=== PATIENT | female | born 1995 | race Two or more races ===

== ENCOUNTER 2017-07-31 14:40 | Emergency (ER) | payer MEDICAID ==
[2017-07-31] MEDS ORDERED: predniSONE 20 MG TABLET PO STA (15:02)
[2017-07-31] MEDS ORDERED: HYDROcod/ACETAM 5/325 MG TABLET PO STA (15:02)
--- NOTE | 2017-07-31 15:04 | ED Physician Documentation ---
PD HPI HEENT - Stated complaint Stated Complaint: FEVER/THROAT PX/RASH - Chief complaint Chief Complaint: Heent - History obtained from History obtained from: Patient - History of Present Illness Timing - onset: Other (2 days of sore throat with pain radiating to both ears associated with fever on the first day which is now better. She has a mild cough but nonproductive. No possibility of . She did recently travel to [facility] and returned yesterday.) Review of Systems Constitutional: reports: Fever (gone). denies: Myalgias Ears: reports: Ear pain Nose: reports: Congestion Throat: reports: Sore throat Respiratory: reports: Cough. denies: Dyspnea GI: reports: Nausea. denies: Abdominal Pain, Vomiting PD PAST MEDICAL HISTORY - Past Medical History Past Medical History: Yes EMBROIDERY CUTTER: Endometriosis - Past Surgical History Past Surgical History: Yes /EMBROIDERY CUTTER: Endometrial ablation - Present Medications Home Medications: Ambulatory Orders Medication Instructions Recorded Confirmed HYDROcod/ACETAM 5/325 [Everson 5/325] 1 - 2 ea PO Q6H PRN #15 tablet 07/31/17 predniSONE [Deltasone] 60 mg PO DAILY 5 Days tablet 07/31/17 - Allergies Allergies/Adverse Reactions: Allergies Allergy/AdvReac Type Severity Reaction Status Date / Time No Known Drug Allergies Allergy Verified 07/31/17 14:48 - Social History Does the pt smoke?: No Smoking Status: Never smoker PD ED PE NORMAL - Vitals Vital signs reviewed: Yes - General General: Alert and oriented X 3, No acute distress - HEENT HEENT: PERRL, EOMI, Ears normal, Moist mucous membranes, Pharynx benign - Neck Neck: Supple, no meningeal sign, Other (Mild anterior cervical adenopathy) - Cardiac Cardiac: RRR, No murmur - Respiratory Respiratory: No respiratory distress, Clear bilaterally - Abdomen Abdomen: Non tender - Derm Derm: No rash - Neuro Neuro: Alert and oriented X 3, Normal speech - Psych Psych: Normal mood, Normal affect Results - Vitals Vitals: Vital Signs - 24 hr 07/31/17 14:46 Temperature 36.6 C Heart Rate 94 Respiratory 17 Rate Blood Pressure 129/87 H O2 Saturation 98 Oxygen O2 Source Room air - Labs Labs: Laboratory Tests 07/31/17 14:45 Group A Strep Rapid Negative PD MEDICAL DECISION MAKING - ED course ED course: She has what sounds like viral pharyngitis,Travel noted, however this seems like a classic URI with unremarkable vital signs and examination. Departure - Departure Disposition: 01 Home, Self Care Clinical Impression: Viral pharyngitis Condition: Good Record reviewed to determine appropriate education?: Yes Instructions: ED Pharyngitis Viral Prescriptions: HYDROcod/ACETAM 5/325 [Everson 5/325] 1 - 2 ea PO Q6H PRN #15 tablet PRN Reason: Pain predniSONE [Deltasone] 60 mg PO DAILY 5 Days tablet Comments: Call your doctor to arrange a follow-up appointment, make the next available appointment. In the interim, return anytime if worse or if new symptoms develop. Your blood pressure was elevated today on check into the emergency department. This does not mean that you have hypertension, it is a common phenomenon to come to the emergency department and have elevated blood pressure. I recommend that you see your primary care physician within the week to have it rechecked when you are feeling better.
[2017-07-31] MEDS ORDERED: ONDANSETRON ODT 4 MG TABLET TL STA (15:31)
[2017-07-31 15:37] VITALS: BP 126/90
== END 2017-07-31 15:49 | disposition home or self-care (01) ==
LOC: ED 14:40
DX: J02.9 Acute pharyngitis, unspecified (principal); B97.89 Other viral agents as the cause of diseases classified elsewhere
CPT/HCPCS: 87070; 87430; 99282; 99283; A9270; J7512; Q0162